=== PATIENT | female | born 1990 | race Caucasian/White ===

== ENCOUNTER 2021-03-16 22:06 | Emergency (ER) | payer OTHER, SELFPAY ==
--- NOTE | ~2021-03-16 | CT_ITS ---
EXAMINATION: CT HEAD WITHOUT CONTRAST CT FACIAL BONES WITHOUT CONTRAST CLINICAL INFORMATION: Trauma. Left ankle swelling. COMPARISON: None. TECHNIQUE: Imaging was performed from the skull base to vertex without intravenous administration of contrast. In addition, helical noncontrast CT imaging was acquired through the facial bones and source images were reviewed along with axial reconstructions and sagittal and coronal MPRs. [This CT examination was performed using dose optimization techniques as appropriate, variously including the following: *Automated exposure control *Adjustment of mA and/or kV according to patient size (this includes techniques or standardized protocols for targeted exams where dose is matched to indication/reason for exam; i.e. extremities or head) *Use of iterative reconstruction technique] DLP: 882 mGy-cm FINDINGS: HEAD: No intracranial mass, hemorrhage, or midline shift is visualized. The ventricles and sulci are normal. No extra-axial collections are identified. FACIAL BONES: There is a comminuted fracture of the left orbit involving the inferior and medial wall and the lateral wall of the orbit. There is gas in the retroconal fat. There is mild proptosis of the left orbit. The orbital globe remains intact. There is no entrapment of the extraocular muscles. There is a comminuted fracture of the anterior and inferior lateral wall of the left maxillary sinus. Blood fills the left maxillary sinus. There is fluid or mucosal thickening in the ethmoid sinuses and sphenoid sinuses bilateral. Small air-fluid level in the inferior right maxillary sinus. There is a minimally displaced comminuted fracture of the left nasal bone. The pterygoid plates are intact. There is air extending around the left infratemporal fossa and around the posterior lateral right pterygoid plate. The mandible and TMJ joints are normal. CT/CT facial bones wo con IMPRESSION: 1. No acute intracranial abnormality. 2. Comminuted fracture of the left orbit and left maxillary sinus and left nasal bone.
[2021-03-16 22:10] VITALS: BP 136/75; PULSE 97; RESP 16; TEMP 36.6; O2SAT 96; BMI 20.6
--- NOTE | 2021-03-16 23:09 | ED_ITS ---
HPI - Head Injury General Chief complaint: Head Injury Stated complaint: facial injury Time Seen by Provider: 03/16/21 22:53 Source: patient Mode of arrival: ambulatory Limitations: no limitations History of Present Illness HPI Narrative: 30-year-old male who presents emergency department for evaluation of head and facial injury while playing soccer. The patient states that he was playing soccer at around 9:00 p.m.. He states he was going for the ball, slipped and fell forward and a another player's knee collided with the left side of his face. He states that he had a brief episode of seeing flashing lights in his left eye and then this resolved. He denies any change in his left eye vision. He has not noticed any blurred vision or any double vision. Patient states he developed immediate pain in his left face beneath design, the pain is a constant, dull pain which is moderate in intensity. He denied loss of consciousness, headache, nausea or vomiting. Patient states that he is having pain in his nose and he believes that he may have broken his nose. Patient had a [employer] COVID-19 vaccine 1 month prior. Related Data Allergies Allergy/AdvReac Type Severity Reaction Status Date / Time No Known Allergies Allergy Verified 03/16/21 23:10 Review of Systems Review of Systems: Yes all other systems are reviewed and are negative [facility] Past Medical History [facility] Narrative: Past medical history: None. Past surgical history: The patient had a tib-fib fracture and required surgical reduction at [facility] approximately 7 years prior. Social history: He denies tobacco, alcohol and drug use. Medical History (Updated 03/16/21 @ 23:57 by José Garrett MD) No known health problems Social History Social History Advance Directives: No Advance Directives Information Provided: Yes Physical Exam Vital Signs: Vital Signs: Last Vital Signs Temp 98 F 03/16/21 22:10 Pulse 97 03/16/21 22:10 Resp 16 03/16/21 22:10 BP 136/75 03/16/21 22:10 Pulse Ox 96 03/16/21 22:10 Body Mass Index 20.6 Const: Other: Awake, alert, male, very pleasant cooperative, does not appear to be in distress, patient has obvious injury to his left face with swelling and ecchymosis of the left lower eyelid. HENMT: Head: Yes normal to inspection, Yes normocephalic and Yes atraumatic Ears: external ears normal General nose exam: Normal external nose present Face and sinus: Yes ecchymosis (Left lower eyelid), Yes edema (Left lower eyelid) and Yes other (Tender left maxillary sinus and left inferior orbital) Mouth: Normal oral and palatal mucosa present Throat: Yes posterior oropharynx normal Eyes: Periorbital: periorbital findings abnormal left periorbital swelling, periorbital tenderness and periorbital ecchymosis Conjunctivae: conjunctivae normal Sclerae: sclerae normal Pupils: Equal, round and reactive pupils present EOM: EOM abnormal (Double vision with left upper lateral gaze) Direct Ophthalmoscopy: normal light reflex Neck: Neck: Yes full ROM, Yes no lymphadenopathy, Yes no meningeal signs, Yes trachea midline, Yes supple and Yes other (No C-spine tenderness) Chest: Chest palpation & inspection: normal inspection of the chest and normal palpation of entire chest wall Resp: Effort & Inspection: normal respiratory effort and able to speak in complete sentences Auscultation: clear to auscultation bilaterally Cardio: Rate: regular rate Rhythm: regular rhythm Heart sounds: S1 normal heart sound present, S2 normal heart sound present and no murmurs GI: Inspection: Yes normal to inspection Palpation (GI): Soft to palpation, nontender, no guarding, not rigid and No hepatosplenomegaly present : General: Yes no CVA tenderness Back/Spine/Pelvis: Back: no CVA tenderness Cervical Spine: normal cervical lordosis Thoracic/Lumbar Spine: thoracic and lumbar spine normal to inspection Neuro: General: no meningeal signs Cranial nerves: Yes Equal, round and reactive pupils present Cognition (Neuro): normal cognition Motor exam (neuro): 5/5 motor strength present throughout Extrem: Other: Abrasion to the right knee Psych: Appearance: well kempt Mental Status: mental status grossly normal Speech and movement: Normal speech and movement present Affect: normal affect Attitude: cooperative Thought process: Normal thought process present Thought content: Normal thought content present Course Course Course Narrative: 30-year-old male who presents emergency department for evaluation of left facial injury. Physical examination did reveal significant injury to the patient's left face suggesting a blowout fracture. The patient has no difficulty with vision I did have some slight double vision with left upward gaze only. Patient also has an abrasion to his right knee. CT scan of the head revealed no acute fracture. CT scan of the facial bones revealed left inferior orbital fracture, maxillary sinus fracture and left nasal fractures. The patient's left knee wound was cleaned and dressed with bacitracin. Patient was given a Tdap immunization. [id number]: I did discuss the patient's presentation with the trauma surgeon at [facility], Dr. Dugan who felt that the patient should be evaluated at [facility] ED this evening. I also discuss the patient's presentation with the emergency department attending, Dr. Arellano as well. At this time, I believe that the patient is stable, was told not to eat or drink anything. He was told to go directly to [facility] and I think that it is safe for him to drive and he does not need an ambulance. Discharge Plan Discharge Clinical Impression: Closed fracture of left orbit, Closed fracture of left side of maxilla, Closed fracture nasal bone, Abrasion of knee, right [facility]position: [facility] Transfer Details: [facility] Emergency Department Additional Instructions: You have significant fractures of the facial bones of your left face and of your nose. You received a tetanus diptheria and Pertussin vaccination here in the emergency department. You need to go directly to [facility] Emergency Department and check in with their triage nurse. They are expecting a and the trauma surgeon Dr. Dugan and the emergency department attending physician, Dr. Arellano are aware that you for coming to their emergency department for evaluation. Do not eat or drink anything on your weight to [facility].
[2021-03-16] MEDS: Diphth,Pertus(ACell),Tet Adult 0.5 ML SYRINGE IM (23:59)
[2021-03-17] MEDS: Bacitracin Oint 14 GM TUBE 1 APPL TOPICAL (00:01)
--- NOTE | 2021-03-17 00:13 | PC.NURSE ---
nurse to nurse report given to Yolanda RN at [facility] ED
== END 2021-03-17 00:14 | disposition short-term general hospital (02) ==
PROVIDERS: Emergency Provider Emergency Medicine Emergency Medical Services
DX: S02.85XA Fracture of orbit, unspecified, initial encounter for closed fracture (principal); S02.40DA Maxillary fracture, left side, initial encounter for closed fracture; S02.2XXA Fracture of nasal bones, initial encounter for closed fracture; S80.211A Abrasion, right knee, initial encounter; W01.198A Fall on same level from slipping, tripping and stumbling with subsequent striking against other object, initial encounter; Y93.66 Activity, soccer; Y92.9 Unspecified place or not applicable; Y99.9 Unspecified external cause status
CPT/HCPCS: 70450; 70486; 90471; 90715; 99285